=== PATIENT | female | born 1985 | race Caucasian/White ===

== ENCOUNTER 2020-11-28 16:02 | Emergency (ER) | payer MEDICAID ==
[2020-11-28] MEDS ORDERED: Cyclobenzaprine 10 MG Tab PO ONE ×2 (16:03→19:44)
[2020-11-28] MEDS ORDERED: predniSONE 20 MG Tab PO ONE (16:03)
[2020-11-28] MEDS ORDERED: Acetaminophen/oxyCODONE 325-5 MG Tab PO ONE ×2 (16:03→20:18)
--- NOTE | 2020-11-28 17:05 | EDM.PDOC ---
<Miah Davidson M - Last Filed: 11/28/20 18:56> ED HPI GENERAL MEDICAL PROBLEM - General Chief Complaint: Back Pain or Injury Stated Complaint: BACK SPASMS, SI JOINT ROTATES FARTHER THAN NORMAL Time Seen by Provider: 11/28/20 16:55 Source of Information: Reports: Patient History Limitations: Reports: No Limitations - History of Present Illness INITIAL COMMENTS - FREE TEXT/NARRATIVE: This 35 yo female patient reports to the ED with a 2 week history of increasing lower back pain and lower back spasms. The patient reports she did fall about 2 weeks ago, but her pain had gotten worse today. The patient reports she did take Ibuprofen at about 0230 today and took a vicoden at about 1030 with no symptom relief. The patient reports she has not been seen in the clinic for this, but does have a history of lower back pain. The patient reports she normally feels better with Naproxen, a muscle relaxer and a steroid. 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 Lower Back Pain Score (Numeric/FACES): 4 - Related Data Allergies Allergy/AdvReac Type Severity Reaction Status Date / Time No Known Allergies Allergy Verified 11/28/20 16:41 Home Meds: Home Meds Ibuprofen [Ibuprofen Ib] 200 mg PO Q4H PRN 11/28/20 [History] Past Medical History HEENT History: Reports: None Cardiovascular History: Reports: None Respiratory History: Reports: None Gastrointestinal History: Reports: None Genitourinary History: Reports: None Musculoskeletal History: Reports: Back Pain, Chronic Neurological History: Reports: Headaches, Chronic Other Neuro History: states she hasn't had trouble for quite some time with headaches Psychiatric History: Reports: None Endocrine/Metabolic History: Reports: None Hematologic History: Reports: None Dermatologic History: Reports: None - Past Surgical History Female Surgical History: Reports: None Social & Family History - Tobacco Use Tobacco Use Status *Q: Current Every Day Tobacco User Years of Tobacco use: 15 Packs/Tins Daily: 0.5 ED ROS GENERAL - Review of Systems Review Of Systems: Comprehensive ROS is negative, except as noted in HPI. ED EXAM,LOWER BACK PAIN/INJURY - Physical Exam Exam: See Below Exam Limited By: No Limitations General Appearance: Alert, WD/WN, Mild Distress Eye Exam: Bilateral Eye: EOMI, Normal Inspection, PERRL Ears: Normal External Exam, Normal Canal, Hearing Grossly Normal, Normal TMs Nose: Normal Inspection, Normal Mucosa, No Blood Throat/Mouth: Normal Inspection, Normal Lips, Normal Teeth, Normal Gums, Normal Oropharynx, Normal Voice, No Airway Compromise Head: Atraumatic, Normocephalic Neck: Normal Inspection, Supple, Non-Tender, Full Range of Motion Respiratory/Chest: No Respiratory Distress, Lungs Clear, Normal Breath Sounds, No Accessory Muscle Use, Chest Non-Tender Cardiovascular: Normal Peripheral Pulses, Regular Rate, Rhythm, No Edema, No Gallop, No JVD, No Murmur, No Rub GI/Abdominal: Normal Bowel Sounds, Soft, Non-Tender, No Organomegaly, No Distention, No Abnormal Bruit, No Mass (Female) Exam: Deferred Rectal (Female) Exam: Deferred Back Exam: Decreased Range of Motion, Muscle Spasm, Paraspinal Tenderness Extremities: Normal Inspection, Normal Range of Motion, Non-Tender, No Pedal Edema, Normal Capillary Refill Neurological: Alert, Normal Mood/Affect, CN II-XII Intact, Oriented x 3, Straight Leg Raise (L), Difficulty Walking (due to back pain). No: Saddle Anesthesia Psychiatric: Normal Affect, Normal Mood Skin Exam: Warm, Dry, Intact, Normal Color, No Rash Lymphatic: No Adenopathy Course - Re-Assessments/Exams Free Text/Narrative Re-Assessment/Exam: 11/28/20 18:06 The patient was advised of the lab results. A CT scan was ordered of her abdomen/pelvis and lumbar spine. Departure - Departure Disposition: Home, Self-Care 01 Clinical Impression: Back pain Qualifiers: Back pain location: low back pain Chronicity: unspecified Back pain laterality: bilateral Sciatica presence: without sciatica Qualified Code(s): M54.5 - Low back pain - Discharge Information Instructions: What You Need to Know About Chronic Back Pain Forms: ED Department Discharge Additional Instructions: Clinic follow up flexeril 10mg one every 8 hours as needed for spam alternate tylenol 650mg and ibuprofen every 4-6 hours as needed for discomfort percocet 5/325 one at 2 am if needed for severe pain prednisone 20mg x 3 days then 10mg x 3 days ttke prednisone and ibuprofen with food. Sepsis Event Note (ED) - Evaluation Sepsis Screening Result: No Definite Risk <Kristie Scott - Last Filed: 11/28/20 20:33> Course - Vital Signs Last Recorded V/S: Last Vital Signs Temp 98.5 F 11/28/20 16:43 Pulse 101 H 11/28/20 16:43 Resp 20 11/28/20 16:43 BP 152/87 H 11/28/20 16:43 Pulse Ox 96 11/28/20 16:43 - Orders/Labs/Meds Labs: Laboratory Tests 11/28/20 11/28/20 11/28/20 Range/Units 17:14 17:14 17:36 WBC 15.9 H (5.0-10.0) 10^3/uL RBC 5.20 (4.2-5.4) 10^6/uL Hgb 16.5 H (12.0-16.0) g/dL Hct 45.8 (37.0-47.0) % MCV 88.1 (80-100) fL MCH 31.7 (27.0-34.0) pg MCHC 36.0 H (33.0-35.0) g/dL Plt Count 290 (150-450) 10^3/uL Neut % (Auto) 90.5 H (42.2-75.2) % Lymph % (Auto) 6.6 L (20.5-50.1) % [place] % (Auto) 2.4 (2-8) % Eos % (Auto) 0.1 L (1.0-3.0) % Baso % (Auto) 0.4 (0.0-1.0) % Sodium 142 (136-145) mmol/L Potassium 4.2 (3.5-5.1) mmol/L Chloride 105 (98-107) mmol/L Carbon Dioxide 23 (21-32) mmol/L Anion Gap 18.2 H (7-13) mEq/L BUN 12 (7-18) mg/dL Creatinine 0.93 (0.55-1.02) mg/dL Est Cr Clr Drug Dosing 79.79 mL/min Estimated GFR (MDRD) > 60 BUN/Creatinine Ratio 12.9 (No establ ref range) Glucose 115 H (74-99) mg/dL Calcium 9.1 (8.5-10.1) mg/dL Total Bilirubin 0.4 (0.2-1.0) mg/dL AST 29 (15-37) U/L ALT 56 (14-59) U/L Alkaline Phosphatase 73 (46-116) U/L Total Protein 7.6 (6.4-8.2) g/dL Albumin 3.9 (3.4-5.0) g/dL Globulin 3.7 Albumin/Globulin Ratio 1.1 Urine Color Yellow (YELLOW) Urine Appearance Slightly cloudy (CLEAR) Urine pH 7.5 (5.0-9.0) Ur Specific [place] 1.020 (1.005-1.030) Urine Protein Negative (NEGATIVE) Urine Glucose (UA) Negative (NEGATIVE) Urine Ketones Trace H (NEGATIVE) Urine Occult Blood Moderate H (NEGATIVE) Urine Nitrite Negative (NEGATIVE) Urine Bilirubin Negative (NEGATIVE) Urine Urobilinogen 0.2 (0.2-1.0) mg/dL Ur Leukocyte Esterase Negative (NEGATIVE) Urine RBC 5-10 H /HPF Urine WBC 0-5 (0-5/HPF) /HPF Ur Epithelial Cells Moderate H (NOT SEEN) /HPF Urine Bacteria Few (0-FEW/HPF) /HPF Urine Mucus Few H (NOT SEEN) /LPF Urine HCG, Qual Urine Opiates Screen (NEGATIVE) Ur Oxycodone Screen (NEGATIVE) Urine Methadone Screen (NEGATIVE) Ur Barbiturates Screen (NEGATIVE) U Tricyclic Antidepress (NEGATIVE) Ur Phencyclidine Scrn (NEGATIVE) Ur Amphetamine Screen (NEGATIVE) U Methamphetamines Scrn (NEGATIVE) Urine MDMA Screen (NEGATIVE) U Benzodiazepines Scrn (NEGATIVE) Urine Cocaine Screen (NEGATIVE) U Marijuana (THC) Screen (NEGATIVE) 11/28/20 11/28/20 Range/Units 17:36 17:36 WBC (5.0-10.0) 10^3/uL RBC (4.2-5.4) 10^6/uL Hgb (12.0-16.0) g/dL Hct (37.0-47.0) % MCV (80-100) fL MCH (27.0-34.0) pg MCHC (33.0-35.0) g/dL Plt Count (150-450) 10^3/uL Neut % (Auto) (42.2-75.2) % Lymph % (Auto) (20.5-50.1) % [place] % (Auto) (2-8) % Eos % (Auto) (1.0-3.0) % Baso % (Auto) (0.0-1.0) % Sodium (136-145) mmol/L Potassium (3.5-5.1) mmol/L Chloride (98-107) mmol/L Carbon Dioxide (21-32) mmol/L Anion Gap (7-13) mEq/L BUN (7-18) mg/dL Creatinine (0.55-1.02) mg/dL Est Cr Clr Drug Dosing mL/min Estimated GFR (MDRD) BUN/Creatinine Ratio (No establ ref range) Glucose (74-99) mg/dL Calcium (8.5-10.1) mg/dL Total Bilirubin (0.2-1.0) mg/dL AST (15-37) U/L ALT (14-59) U/L Alkaline Phosphatase (46-116) U/L Total Protein (6.4-8.2) g/dL Albumin (3.4-5.0) g/dL Globulin Albumin/Globulin Ratio Urine Color (YELLOW) Urine Appearance (CLEAR) Urine pH (5.0-9.0) Ur Specific [place] (1.005-1.030) Urine Protein (NEGATIVE) Urine Glucose (UA) (NEGATIVE) Urine Ketones (NEGATIVE) Urine Occult Blood (NEGATIVE) Urine Nitrite (NEGATIVE) Urine Bilirubin (NEGATIVE) Urine Urobilinogen (0.2-1.0) mg/dL Ur Leukocyte Esterase (NEGATIVE) Urine RBC /HPF Urine WBC (0-5/HPF) /HPF Ur Epithelial Cells (NOT SEEN) /HPF Urine Bacteria (0-FEW/HPF) /HPF Urine Mucus (NOT SEEN) /LPF Urine HCG, Qual Negative Urine Opiates Screen Positive H (NEGATIVE) Ur Oxycodone Screen Negative (NEGATIVE) Urine Methadone Screen Negative (NEGATIVE) Ur Barbiturates Screen Negative (NEGATIVE) U Tricyclic Antidepress Negative (NEGATIVE) Ur Phencyclidine Scrn Negative (NEGATIVE) Ur Amphetamine Screen Negative (NEGATIVE) U Methamphetamines Scrn Negative (NEGATIVE) Urine MDMA Screen Negative (NEGATIVE) U Benzodiazepines Scrn Negative (NEGATIVE) Urine Cocaine Screen Negative (NEGATIVE) U Marijuana (THC) Screen Positive H (NEGATIVE) Meds: Medications Discontinued Medications Generic Name Dose Route Start Last Admin Trade Name Carlos Alberto PRN Reason Stop Dose Admin Cyclobenzaprine HCl 10 mg 11/28/20 19:44 11/28/20 19:53 Cyclobenzaprine 10 Mg Tab PO 11/28/20 19:45 10 mg ONETIME ONE Administration Cyclobenzaprine HCl Confirm 11/28/20 20:24 Cyclobenzaprine 10 Mg Tab Administered 11/28/20 20:25 Dose 10 mg .ROUTE .STK-MED ONE Ketorolac Tromethamine 30 mg 11/28/20 19:44 11/28/20 19:53 Ketorolac 30 Mg/Ml Sdv IM 11/28/20 19:45 30 mg ONETIME ONE Administration Oxycodone/Acetaminophen 1 tab 11/28/20 20:18 Acetaminophen/Oxycodone 325-5 Mg Tab PO 11/28/20 20:19 ONETIME ONE Oxycodone/Acetaminophen Confirm 11/28/20 20:24 Acetaminophen/Oxycodone 325-5 Mg Tab Administered 11/28/20 20:25 Dose 1 tab .ROUTE .STK-MED ONE Prednisone Confirm 11/28/20 20:24 Prednisone 20 Mg Tab Administered 11/28/20 20:25 Dose 40 mg .ROUTE .STK-MED ONE Departure - Departure Time of Disposition: 20:30 Condition: Good - Discharge Information *PRESCRIPTION DRUG MONITORING PROGRAM REVIEWED*: No *COPY OF PRESCRIPTION DRUG MONITORING REPORT IN PATIENT RAEGAN: No Sepsis Event Note (ED) - Focused Exam Vital Signs: Vital Signs Temp Pulse Resp BP Pulse Ox 11/28/20 16:43 98.5 F 101 H 20 152/87 H 96
[2020-11-28 17:37] LABS: ANION GAP 18.2 mEq/L (7-13); CHLORIDE,CL 105 mmol/L (98-107); SODIUM,NA 142 mmol/L (136-145)
--- NOTE | 2020-11-28 18:57 | CT ---
PROCEDURE INFORMATION: Exam: CT Abdomen And Pelvis Without Contrast Exam date and time: 11/28/2020 6:08 PM Age: 35 years old Clinical indication: Other: Abdominal pain; Additional info: Lower back and abdominal pain (wbc - 15.9) TECHNIQUE: Imaging protocol: Computed tomography of the abdomen and pelvis without contrast. Radiation optimization: All CT scans at this facility use at least one of these dose optimization techniques: automated exposure control; mA and/or kV adjustment per patient size (includes targeted exams where dose is matched to clinical indication); or iterative reconstruction. COMPARISON: No relevant prior studies available. FINDINGS: Lungs: The lung bases are clear. There are no pleural effusions. Liver: There is diffuse fatty infiltration of the liver. Allowing for lack of IV contrast, no focal hepatic lesions are identified. Gallbladder and bile ducts: The gallbladder is not distended. There is no biliary ductal dilatation. Pancreas: The pancreas is within normal limits. Spleen: The spleen is normal in size. Adrenal glands: The adrenal glands are normal in appearance. Kidneys and ureters: The kidneys are symmetric in size. There is no evidence of hydronephrosis or renal stone. The ureters are normal in caliber. No intraluminal filling defects are identified. Stomach and bowel: The stomach is not distended. No pathologically dilated small bowel loops are identified. There is no evidence of colonic wall thickening or pericolonic inflammation. Appendix: There is a normal appendix in the right lower quadrant. Intraperitoneal space: There is no free air or free fluid in the abdomen or pelvis. Vasculature: The aorta is normal in caliber. Lymph nodes: No pathologically enlarged lymph nodes are identified in the abdomen or pelvis. Urinary bladder: The urinary bladder appears normal. Reproductive: The uterus is normal in appearance. The ovaries appear normal bilaterally. Bones/joints: There is normal alignment throughout the visualized portion of the spine. No acute fractures or aggressive bone lesions are identified. Soft tissues: Within normal limits. IMPRESSION: 1. No acute intra-abdominal pathology is identified on this unenhanced study. Specifically, there is no evidence of hydronephrosis, renal or ureteral calculi. 2. Fatty infiltration of the liver, a finding which can be due to benign steatosis versus alcoholic or non alcoholic steatohepatitis.
--- NOTE | 2020-11-28 19:07 | CT ---
PROCEDURE INFORMATION: Exam: CT Lumbar Spine Without Contrast Exam date and time: 11/28/2020 6:08 PM Age: 35 years old Clinical indication: Low back pain; Additional info: Lower back and abdominal pain (wbc - 15.9) TECHNIQUE: Imaging protocol: Computed tomography images of the lumbar spine without contrast. Radiation optimization: All CT scans at this facility use at least one of these dose optimization techniques: automated exposure control; mA and/or kV adjustment per patient size (includes targeted exams where dose is matched to clinical indication); or iterative reconstruction. COMPARISON: No relevant prior studies available. FINDINGS: Vertebrae: There is normal alignment throughout the lumbar spine. There are 6 [id number] lumbar vertebral bodies, a normal variant. There is preservation of the vertebral body heights. No fractures or aggressive bone lesions are identified. The vertebral body endplates are sharply marginated. The facet joints are normally aligned and articulated. Discs/Spinal canal/Neural foramina: There is mild disc space foreshortening with anterior osteophytes at L4-L5 and L5-L6. Soft tissue windows demonstrate a right posterolateral disc bulge at L5-L6 which results in encroachment upon the right lateral recess, which could impinge upon the right L5 nerve root. There is a mild broad-based disc bulge at L6-S1 which does not appear to cause any significant compromise of the central canal or neural foramina. Sacrum/coccyx: The sacroiliac joints are symmetric. Soft tissues: The visualized paravertebral soft tissues are within normal limits. IMPRESSION: No acute fracture or malalignment identified. 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 If further evaluation of the intervertebral discs and spinal canal contents is clinically warranted, consider MRI.
[2020-11-28] MEDS ORDERED: Ketorolac 30 MG/ML SDV IM ONE (19:44)
[2020-11-28] MEDS ORDERED: Acetaminophen/oxyCODONE 325-5 MG Tab ONE (20:24)
[2020-11-28] MEDS ORDERED: predniSONE 20 MG Tab ONE (20:24)
[2020-11-28] MEDS ORDERED: Cyclobenzaprine 10 MG Tab ONE (20:24)
== END 2020-11-28 20:47 | disposition home or self-care (01) ==
LOC: DL.ED 16:02
DX: M54.5 Low back pain (principal); Z72.0 Tobacco use
CPT/HCPCS: 36415; 72131; 74176; 80053; 80305; 81001; 81025; 85025; 96372; 99283; 99284; A9270; J1885; J7512